=== PATIENT | male | born 1975 | race Caucasian/White ===

== ENCOUNTER 2020-11-12 02:49 | Emergency (ER) | payer OTHER ==
[~2020-11-12] VITALS: Ht 175.3 cm; Wt 93.0 kg
--- NOTE | 2020-11-12 03:26 | PHYS DOC ---
Adult General Chief Complaint Chief Complaint: ANXIETY/PANIC ATTACK HPI HPI Patient is a 45-year-old male with a history of anxiety and depression who presents with anxiety attack. States that he recently started Prozac and just before coming in began to feel anxious, and maybe had some anxiety about sta rting Prozac. States that he looked up online that if you take Prozac you can get serotonin syndrome and was concerned he had serotonin syndrome. Denies any recent illnesses, fevers, confusion, chest pain, shortness of breath, abdominal pain, nausea, vomiting, diarrhea, involuntary muscle spasms or twitches. Denies any numbness/weakness/tingling. States he is able to make urine and stool without issue. States he is able to walk without issue. Review of Systems Review of Systems Review of systems otherwise unremarkable except noted in HPI Current Medications Current Medications Current Medications Medications (Trade) Dose Ordered Sig/Herbie Start Time Stop Time Status Last Admin Dose Admin Diazepam (Valium) 10 mg 1X ONCE 11/12/20 03:15 11/12/20 03:16 UNV Allergies Allergies Allergies Coded Allergies Type Severity Reaction Last Updated Verified No Known Drug Allergies 11/12/20 No Physical Exam Physical Exam Constitutional: Well developed, well nourished, no acute distress, non-toxic appearance. [] HENT: Normocephalic, atraumatic, bilateral external ears normal, oropharynx moist, no oral exudates, nose normal. [] Eyes: PERRLA, EOMI, conjunctiva normal, no discharge. [] Neck: Normal range of motion, no tenderness, supple, no stridor. [] Cardiovascular:Heart rate regular rhythm, no murmur [] Lungs & Thorax: Bilateral breath sounds clear to auscultation [] Abdomen: Bowel sounds normal, soft, no tenderness, no masses, no pulsatile masses. [] Skin: Warm, dry, no erythema, no rash. [] Extremities: No tenderness, no cyanosis, no clubbing, ROM intact, no edema. [] Neurologic: Alert and oriented X 3, normal motor function, normal sensory function, no focal deficits noted. [] Psychologic: Affect normal, judgement normal, mood normal. [] EKG EKG [] Radiology/Procedures Radiology/Procedures [] Heart Score C/O Chest Pain: No Risk Factors: Risk Factors: DM, Current or recent (<one month) smoker, HTN, HLP, family history of CAD, obesity. Risk Scores: Risk Factors: DM, Current or recent (<one month) smoker, HTN, HLP, family history of CAD, obesity. Course & Med Decision Making Course & Med Decision Making Patient is a very nice 45-year-old male who presents with what appears to be an anxiety attack. Vital signs not concerning. Physical exam noted above. Patient has no signs or symptoms of serotonin syndrome. Gave patient diazepam in the emergency department. Spent several minutes discussing serotonin syndrome as well as anxiety and panic attacks. Gave reassurance that that is not what is going on right now. Advised that if he is nervous about taking Prozac or thinks he is having some adverse medication effects then he should call his primary care physician first thing today to discuss this and set up a follow-up as soon as possible. Advised not to change any dosing of any medications he is taking before talking to his primary care physician that provided these. Gave strict return precautions to the ED. Patient grateful, verbalized understanding and agreed with plan of discharge. [] Dragon Disclaimer Dragon Disclaimer This electronic medical record was generated, in whole or in part, using a voice recognition dictation system. Departure Departure: Impression: Primary Impression: Anxiety Additional Impression: Depression Disposition: 01 DC HOME SELF CARE/HOMELESS Condition: GOOD Referrals: NADIA LUCIANO MD Patient Instructions: Anxiety and Panic Attacks, Depression, Adult Additional Instructions: Please read all the attached information. As discussed call your primary care physician first thing in the morning to discuss your concerns about your medications and your recent ED visit and set up a follow-up as soon as possible. Please do not change any dosing of your medications without talking to your primary care physician first. You were given diazepam, and antianxiety medication in the emergency department for reasons as discussed. You are given a prescription for 2 diazepam to keep at home for rescue. If you do have to take these please do not drink alcohol with these, drive or go to work. Scripts Diazepam (DIAZEPAM) 5 Mg Tablet 5 MG PO BID for anxiety for 3 Days, #6 TAB Prov: MARY LOU CABRERA MD 11/12/20 Problem Qualifiers MARY LOU CABRERA MD Nov 12, 2020 03:26
[2020-11-12] MEDS: diazePAM 5 MG TABLET. PO ONE (03:30)
[2020-11-12] MEDS ORDERED: DIAZ5TAB4 PO (04:09)
[2020-11-12 04:18] VITALS: BP 122/55
== END 2020-11-12 04:18 | disposition home or self-care (01) ==
LOC: ER 02:49
DX: F41.9 Anxiety disorder, unspecified (principal); F32.9 Major depressive disorder, single episode, unspecified
CPT/HCPCS: 99284